=== PATIENT | female | born 1960 | race Caucasian/White ===

== ENCOUNTER → 2018-02-01 | Outpatient (CLI) | payer OTHER ==
[2018-02-01 10:52] VITALS: BMI 22.4
--- NOTE | 2018-02-01 11:47 | P.GSHP ---
History of Present Illness H&P Date: 02/01/18 The patient is a 57-year-old white female who presents for breast examination. Her last bilateral mammogram was performed [id number] which revealed chronic nodularity 4:00 in the right breast at middle depth. And a focal asymmetry 6: 00 in the left breast posteriorly appeared more defined from prior exams. Recommendations was for additional views of the left breast which were performed on 351. This revealed the breast to be heterogeneously dense with some persistence of density however it was felt to be probably benign and six- month follow-up was recommended. At this time the patient states she has some persistent tenderness in the lateral aspect of the left breast. No discrete nodularity is identified. She does not complain of any masses or lumps in her breasts. She does not complain of any nipple discharge or skin changes. She has no history of trauma or infection in the breast. The patient drinks one to 2 cups of coffee per day, she drinks occasional pop. She does not smoke and does not live with a smoker. She does not have large quantities of chocolate intake. Family history: 1. Mother: Rectal cancer Hormonal History: menarche: 14 : 3, 3 children, breast fed: no, first at 19 menopause: 47 BCP: none hormones: none Past surgical history: 1. Cyst right neck 2. Bilateral breast biopsies all benign 3. Tubal ligation 4. bladder surgery Past medical history: 1. none 2. occasional migraine Social history: Smoking: Negative Alcohol: On weekendswine Drugs: Negative - Constitutional Constitutional: Reports sweats - EENT Eyes: denies blurred vision, denies pain Ears: left: decreased hearing, deny: tinnitus Ears, nose, mouth and throat: Reports headache, Denies sore throat - Breasts Breasts: bilateral: as per HPI - Cardiovascular Comment: palpitations Cardiovascular: Denies chest pain, Denies shortness of breath - Respiratory Respiratory: Denies cough, Denies 7 - Gastrointestinal Gastrointestinal: Denies abdominal pain, Denies diarrhea, Denies nausea, Denies vomiting - Genitourinary (Female) Genitourinary: Denies dysuria, Denies hematuria - Menstruation Menstruation: Reports postmenopausal - Musculoskeletal Comment: arthritis - Integumentary Integumentary: Denies pruritus, Denies rash - Neurological Neurological: Denies numbness, Denies weakness - Psychiatric Psychiatric: Denies anxiety, Denies depression - Endocrine Endocrine: Denies fatigue, Denies weight change - Hematologic/Lymphatic Comment: none - Allergic/Immunologic Allergic/Immunologic: Reports seasonal allergies Past Medical History Past Medical History: Mitral Valve Prolapse (MVP) Additional Past Medical History / Comment(s): CONSTIPATION- FAMILY HX COLON CA History of Any Multi-Drug Resistant Organisms: None Reported Past Surgical History: Bladder Surgery, Breast Surgery, Tubal Ligation Additional Past Surgical History / Comment(s): BREAST BX X 3, VAGINAL SLING, EXC.CYST-NECK, COLONOSCOPY Past Anesthesia/Blood Transfusion Reactions: No Reported Reaction Smoking Status: Never smoker Past Alcohol Use History: Occasional Past Drug Use History: None Reported - Past Family History Mother Family Medical History: Cancer Additional Family Medical History / Comment(s): COLON CA Medications and Allergies Home Medications Medication Instructions Recorded Confirmed Type Rizatriptan Benzoate [Maxalt] 10 mg PO BID PRN 09/21/14 02/01/18 History Allergies Allergy/AdvReac Type Severity Reaction Status Date / Time amoxicillin Allergy Rash/Hives Verified 09/21/14 10:49 cephalexin monohydrate Allergy Nausea & Verified 09/21/14 10:49 [From Keflex] Vomiting Surgical - Exam - General well developed, well nourished, no distress - Eyes normal ocular movement - ENT no hearing loss, no congestion - Neck no masses, trachea midline - Respiratory normal respiratory effort, clear to auscultation - Cardiovascular Rhythm: regular Heart Sounds: normal: S1, S2 - Abdomen Abdomen: soft, non tender, no guarding, no rigid, no rebound - Neurologic no disoriented, no combative - Musculoskeletal normal gait, normal posture - Psychiatric oriented to time, oriented to person, oriented to place, speech is normal, memory intact breast exam; Right breast: Multi-positional exam fibrocystic changes, prior biopsies performed with some scar tissue, no dominant masses or nodules of concern, Right axilla: No adenopathy of concern Left breast: Multi-positional exam fibrocystic changes, set our tissue from prior biopsies, some slight increased fullness of the breast in the upper outer quadrant area which appears to be fibrocystic No dominant masses or nodules of concern Left axilla: No adenopathy of concern Results mammogram reviewed Assessment and Plan Plan: impression: 1.fibrocystic breast 2. abnormal mammogram 3. history of migraines 4. Discomfort left lateral breast most likely fibrocystic in nature plan: 1. left breast mammogram now is no lesions of concern noted on mammogram patient will have repeat bilateral mammogram in 6 months 2. Follow-up examination in 6 months Cc: Dr. Suleiman Avelar We have discussed that caffeine intake may cause the discomfort in her left breast however the patient is going to consider whether she would like to stop her coffee or not.
== END | disposition home or self-care (01) ==
LOC: WWCWWP 10:25
PROVIDERS: ATTEND Surgery
DX: Z53.9 Procedure and treatment not carried out, unspecified reason (principal)

== ENCOUNTER → 2018-02-11 | Outpatient (CLI) | payer BC ==
--- NOTE | 2018-02-11 08:39 | MM ---
Reason for exam: follow-up at short interval from prior study. Last mammogram was performed 8 years and 8 months ago. History: Excisional biopsy of both breasts, August 2008. 2 benign cyst aspirations of the right breast. Physical Findings: Nurse did not find any significant physical abnormalities on exam. MG 3D Diag Mammo W/Cad LT CC and MLO view(s) were taken of the left breast. Prior study comparison: July 30, 2017, mammogram. July 26, 2017, mammogram. March 30, 2016, mammogram. The breast tissue is heterogeneously dense. This may lower the sensitivity of mammography. Architectural distortion posterior superior left breast centrally on the CC view appears to have been present in 2016, likely excisional scar. Asymmetric densities posteriorly and centrally on the MLO view are more defined from07/26/17 but appear similar to 2016. Additional short interval follow up recommended. These results were verbally communicated with the patient and result sheet given to the patient on 02/11/18. ASSESSMENT: Probably benign, BI-RAD 3 RECOMMENDATION: Follow-up diagnostic mammogram of both breasts in 6 months. (total 1 year follow up)
== END | disposition home or self-care (01) ==
LOC: RADMAMWWP 07:03
PROVIDERS: ATTEND Surgery
DX: N63.20 Unspecified lump in the left breast, unspecified quadrant (principal)
CPT/HCPCS: 77061; 77065

== ENCOUNTER → 2018-08-13 | Outpatient (CLI) | payer BC, OTHER ==
--- NOTE | 2018-08-13 07:53 | MM ---
Reason for exam: follow-up at short interval from prior study. Last mammogram was performed 6 months ago. History: Patient is postmenopausal. Excisional biopsy of both breasts, August 2008. 2 benign cyst aspirations of the right breast. Physical Findings: Nurse did not find any significant physical abnormalities on exam. MG 3D Diag Mammo W/Cad SHANNA Bilateral CC and MLO view(s) were taken. Prior study comparison: February 11, 2018, left breast MG 3d diag mammo w/cad LT. July 30, 2017, mammogram. The breast tissue is heterogeneously dense. This may lower the sensitivity of mammography. No suspicious abnormality. Two areas of left distortion are seen on the left at 12 o'clock and upper outer quadrant correspond to the sites of prior excision. These results were verbally communicated with the patient and result sheet given to the patient on 08/13/18. ASSESSMENT: Benign, BI-RAD 2 RECOMMENDATION: Routine screening mammogram of both breasts in 1 year.
== END | disposition home or self-care (01) ==
LOC: RADMAMWWP 06:59
PROVIDERS: ATTEND Surgery
DX: R92.8 Other abnormal and inconclusive findings on diagnostic imaging of breast (principal)
CPT/HCPCS: 77062; 77066

== ENCOUNTER → 2020-07-06 | Outpatient (CLI) | payer BC ==
[2020-07-06 08:47] VITALS: BP 120/80; PULSE 77; RESP 18; TEMP 97.8
--- NOTE | 2020-07-06 09:32 | P.HPOB ---
History of Present Illness H&P Date: 07/06/20 Chief Complaint: The patient is here for her routine gynecologic exam and ma mmogram. This is a 60-year-old with an LMP of 2008. The patient is here to establish with this office. It is been about 3 years since her last pelvic exam. The patient is without gynecologic complaints and denies any postmenopausal bleeding. She was previously seen by Dr. Peters for regular Pap smears. Review of Systems She believes she has gained about 5 pounds over the past year. She denies respiratory or GI problems. Cardiac: Occasional palpitation and this is previously been worked up and felt to be not a problem. Past Medical History Past Medical History: Asthma, Mitral Valve Prolapse (MVP) Additional Past Medical History / Comment(s): History of migraine. 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 History of Any Multi-Drug Resistant Organisms: None Reported Past Surgical History: Bladder Surgery, Breast Surgery, Tubal Ligation Additional Past Surgical History / Comment(s): BREAST BX X 3, VAGINAL URETHRAL SLING, EXC.CYST-NECK, COLONOSCOPY 2014(next after 5yr). Varicose vein surgery on the legs. Past Anesthesia/Blood Transfusion Reactions: No Reported Reaction Past Psychological History: No Psychological Hx Reported Smoking Status: Never smoker Past Alcohol Use History: Daily (1 or 2 per day) Past Drug Use History: None Reported Additional History: She has been since 1999. She does not work outside of the home. - Past Family History Mother Family Medical History: Cancer, Hypertension Additional Family Medical History / Comment(s): COLON CA. Osteoporosis. Father Family Medical History: Hypertension Medications and Allergies Home Medications Medication Instructions Recorded Confirmed Type Rizatriptan Benzoate [Maxalt] 10 mg PO BID PRN 09/21/14 07/06/20 History Albuterol Sulfate [Ventolin HFA] 1 - 2 puff INHALATION Q6H PRN 07/06/20 07/06/20 History Allergies Allergy/AdvReac Type Severity Reaction Status Date / Time amoxicillin Allergy Rash/Hives Verified 07/06/20 08:42 cephalexin monohydrate Allergy Nausea & Verified 07/06/20 08:42 [From Keflex] Vomiting Exam Vital Signs Temp Pulse Resp BP Pulse Ox 07/06/20 08:44 97.8 F 77 18 120/80 99 Intake and Output 07/05/20 07/06/20 07/06/20 22:59 06:59 14:59 Other: Weight 67.132 kg Height 5 feet 7 inches, weight 148 pounds, BMI 23.2. This is a well-developed well-nourished white female who is alert and oriented times 3 in no acute distress. HEENT: Within normal limits. NECK: Supple without mass or thyromegaly. CHEST AND LUNGS: Clear to auscultation. HEART: Regular rate and rhythm. BREASTS: Are without mass or discharge. AXILLARY EXAM: Negative for adenopathy. BACK: Negative for CVA tenderness. ABDOMEN: Soft, nontender, without palpable masses. PELVIC EXAM: Normal external genitalia with mild atrophy. Cervix and vagina appear normal mild atrophy. There is no unusual discharge. There is no evidence of prolapse. The uterus is retroverted, nongravid size and nontender. There are no palpable adnexal masses or tenderness. RECTAL EXAM: Rectovaginal exam is negative for mass or tenderness and is negative for occult blood. EXTREMITIES: Nontender. IMPRESSION: 1. 60-year-old menopausal female with normal gynecologic exam. 2. Family history of colon cancer and osteoporosis. PLAN: 1. Pap smear cotest was performed. We will try to obtain records from Dr. Peters regarding her Pap smears over the past 10 years. 2. Self breast awareness was discussed with the patient. 3. Screening mammogram was done today. 4. Osteoporosis prevention was discussed. I have stressed the importance of adequate calcium, vitamin D and regular exercise. Recommended amounts of calcium and vitamin D were also discussed. Bone density testing will be done today. 5. She states she is due for a colonoscopy and states she may wait until the Covid pandemic has improved. Because she is considered above-average risk because of her mother's history of colon cancer, I have recommended that she continue to have colonoscopies instead of Cologuard testing. 6. She was advised to return in one year for her annual well woman exam.
--- NOTE | 2020-07-06 11:58 | BD ---
EXAMINATION TYPE: Axial Bone Density DATE OF EXAM: 07/06/2020 COMPARISON: NONE CLINICAL HISTORY: Height: 5 FT 6IN Weight: 145 FRAX RISK QUESTIONS: Alcohol (3 or more units per day): NO Family History (Parent hip fracture): NO Glucocorticoids (More than 3mos): NO (Ex: prednisone, prednisolone, methylprednisolone, dexamethasone, and hydrocortisone). History of Fracture in Adulthood: NO Secondary Osteoporosis: 1. Type 1 Diabetes: NO 2. Hyperthyroidism: NO 3. Menopause before 45: NO 4. Malnutrition: NO 5. Chronic liver disease: NO Rheumatoid Arthritis: NO Current Tobacco Use: NO RISK FACTORS HISTORY OF: Family History of Osteoporosis: YES Active: SOMEWHAT Diet low in dairy products/other sources of calcium: NO Postmenopausal woman: AGE 40-50 Take estrogen and/or progesterone medications: NONE Lost more than 2 inches in height since high school: NO MEDICATIONS: Additional Medications: MAXALT NEEDED, INHALER NEEDED, VITAMINS Additional History: EXAM MEASUREMENTS: Bone mineral densitometry was performed using the [employer] System. Bone mineral density as measured about the Lumbar spine is: ----- L1-L4(G/cm2): 0.985 T Score Values are as follows: ----- L2: -1.9 ----- L3: -1.6 ----- L4: -1.0 ----- L1-L4: -1.6 BASELINE Bone mineral density about the R hip (g/cm2): 0.933 Bone mineral density about the L hip (g/cm2): 0.971 T Score values are as follows: -----R Neck: -0.8 -----L Neck: -0.5 -----R Total: 0.2 -----L Total: -0.3 BASELINE IMPRESSION: Osteopenia (T Score between -2.5 and -1). There is slightly increased risk of fracture and the patient may be considered for treatment. Re-Screen 2-5 years. NOTE: T-SCORE=SD OF THE YOUNG ADULT MEAN.
== END | disposition home or self-care (01) ==
LOC: WWCWWP 07:45
PROVIDERS: ATTEND Obstetrics & Gynecology
DX: M85.80 Other specified disorders of bone density and structure, unspecified site (principal); Z78.0 Asymptomatic menopausal state
CPT/HCPCS: 77080

== ENCOUNTER → 2020-07-06 | Outpatient (CLI) | payer BC ==
--- NOTE | 2020-07-07 11:14 | MM ---
Reason for exam: screening (asymptomatic). Last mammogram was performed 1 year and 11 months ago. History: Patient is postmenopausal. Excisional biopsy of both breasts, August 2008. 2 benign cyst aspirations of the right breast. Took hormonal contraceptives for 2 years. Physical Findings: A clinical breast exam by your physician is recommended on an annual basis and results should be correlated with mammographic findings. MG 3D Screening Mammo W/Cad Bilateral CC and MLO view(s) were taken. Prior study comparison: August 13, 2018, bilateral MG 3d diag mammo w/cad [facility]. July 26, 2017, mammogram. The breast tissue is heterogeneously dense. This may lower the sensitivity of mammography. No significant changes when compared with prior studies. ASSESSMENT: Benign, BI-RAD 2 RECOMMENDATION: Routine screening mammogram of both breasts in 1 year.
== END | disposition home or self-care (01) ==
LOC: RADMAMWWP 07:44
PROVIDERS: ATTEND Obstetrics & Gynecology
DX: Z12.31 Encounter for screening mammogram for malignant neoplasm of breast (principal)
CPT/HCPCS: 77063; 77067

== ENCOUNTER 2020-11-24 08:48 | Day surgery (SDC) | payer BC ==
[2020-11-19 14:17] VITALS: BMI 21.9
[~2020-11-24 08:48] MED LIST: LACTATED RINGERS 1,000 ML IV SCH; LIDOCAINE 1% (10MG/ML) FOR IV START INTRADERMA PRN
[2020-11-24 09:25] VITALS: RESP 16; TEMP 99
[2020-11-24] MEDS ORDERED: ALBUTEROL INHALER 60 PUFF/8 GM INHALER (MHU) INHALATION ONE (09:33)
[2020-11-24] MEDS ORDERED: PROPOFOL 10 MG/ML 20 ML VIAL IV ONE (10:03)
--- NOTE | 2020-11-24 10:21 | P.PCN ---
Date of Procedure: 11/24/20 Procedure(s) Performed: BRIEF HISTORY: Patient is a 60-year-old pleasant white female scheduled for an elective colonoscopy as a part of screening for colorectal neoplasia. She does have family history of colon cancer diagnosed in her mouth at age 70. PROCEDURE PERFORMED: Colonoscopy. PREOPERATIVE DIAGNOSIS: Screening for colon cancer and family history of colon cancer. IV sedation per Anesthesia. PROCEDURE: After informed consent was obtained, the patient, was brought into the endoscopy unit. IV sedation was administered by Anesthesia under continuous monitoring. Digital rectal examination was normal. Initially the Olympus CF-160 flexible video colonoscope was then inserted in the rectum, gradually advanced into the cecum without any difficulty. Careful examination was performed as the scope was gradually being withdrawn. Ileocecal valve and the appendiceal orifice were visualized and appeared normal. Prep was excellent. Mucosa of the cecum, ascending colon, transverse colon, descending colon, sigmoid colon, and rectum appeared normal. Retroflexion was performed in the rectum and no lesions were seen. Scattered sigmoid diverticulosis seen. The patient tolerated the procedure well. IMPRESSION: Normal-appearing colon from rectum to cecum with no evidence of colorectal neopl maria guadalupe Scattered sigmoid diverticulosis. . RECOMMENDATIONS: Findings of this examination were discussed with the patient as well as family. She was advised to have a repeat screening colonoscopy neftaly ry 5 years because of strong family history of colon cancer.
[2020-11-24 10:43] VITALS: BP 107/69; PULSE 74
== END 2020-11-24 11:10 | disposition home or self-care (01) ==
LOC: ORWHC2ENDO 08:48
PROVIDERS: ATTEND Internal Medicine Gastroenterology
DX: Z12.11 Encounter for screening for malignant neoplasm of colon (principal); K57.30 Diverticulosis of large intestine without perforation or abscess without bleeding; Z80.0 Family history of malignant neoplasm of digestive organs; Z79.899 Other long term (current) drug therapy; I34.1 Nonrheumatic mitral (valve) prolapse; J45.909 Unspecified asthma, uncomplicated; G43.909 Migraine, unspecified, not intractable, without status migrainosus; Z88.1 Allergy status to other antibiotic agents; Z88.0 Allergy status to penicillin; K21.9 Gastro-esophageal reflux disease without esophagitis
CPT/HCPCS: J2704; G0105

== ENCOUNTER → 2022-10-24 | Outpatient (CLI) | payer BC ==
[2022-10-24 08:36] VITALS: BP 138/91; PULSE 67; RESP 16; TEMP 98.2
--- NOTE | 2022-10-24 09:27 | P.HPOB ---
History of Present Illness H&P Date: 10/24/22 Chief Complaint: The patient is here for her routine gynecologic exam and ma mmogram. This is a 62-year-old with an LMP of 2008. The patient states she has been having low abdominal and pelvic pressure which has been intermittent. She rates it at a 2 out of 10. It has not been a very big problem, but is noticeable. She is otherwise without complaints. Review of Systems She is gained about 12 pounds over the past year. She denies respiratory or GI problems. Cardiac: Occasional palpitations. This was worked up and was felt to be intermittent PVCs. : She states she is voiding well and does not have any issues with retention. Past Medical History Past Medical History: Asthma, GERD/Reflux, Mitral Valve Prolapse (MVP), Osteoarthritis (OA), Pneumonia Additional Past Medical History / Comment(s): hx migraine. palpitations, renal insufficiency. Osteopenia. 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 History of Any Multi-Drug Resistant Organisms: None Reported Past Surgical History: Bladder Surgery, Breast Surgery, Tubal Ligation Additional Past Surgical History / Comment(s): BREAST BX X 3, URETHRAL SLING, EXC.CYST-NECK, varicose vein surgery left leg. Colonoscopy 2020(next after 5yr). Past Anesthesia/Blood Transfusion Reactions: No Reported Reaction Past Psychological History: No Psychological Hx Reported Smoking Status: Never smoker Past Alcohol Use History: Occasional (4-5 per week) Past Drug Use History: Marijuana (She does use marijuana and this helps her to sleep.) Additional History: She has been since 1999. She is sexually active. She does not work outside of the home. - Past Family History Father Family Medical History: Hypertension Mother Family Medical History: Cancer, Deep Vein Thrombosis (DVT) Additional Family Medical History / Comment(s): COLON CA. Medications and Allergies Home Medications Medication Instructions Recorded Confirmed Type Rizatriptan Benzoate [Maxalt] 10 mg PO BID PRN 09/21/14 10/24/22 History Albuterol Sulfate [Ventolin HFA] 1 - 2 puff INHALATION Q6H PRN 07/06/20 10/24/22 History Multivitamins, Thera [Multivitamin 1 tab PO DAILY 11/19/20 10/24/22 History (formulary)] Allergies Allergy/AdvReac Type Severity Reaction Status Date / Time amoxicillin Allergy Rash/Hives Verified 10/24/22 08:32 cephalexin monohydrate Allergy Nausea & Verified 10/24/22 08:32 [From Keflex] Vomiting Exam Vital Signs Temp Pulse Resp BP Pulse Ox 10/24/22 08:33 98.2 F 67 16 138/91 99 Intake and Output 10/23/22 10/24/22 10/24/22 22:59 06:59 14:59 Other: Weight 72.575 kg Height 5 feet 6 inches, weight 160 pounds, BMI 25.8. This is a well-developed well-nourished white female who is alert and oriented times 3 in no acute distress. HEENT: Within normal limits. NECK: Supple without mass or thyromegaly. CHEST AND LUNGS: Clear to auscultation. HEART: Regular rate and rhythm. BREASTS: Are without mass or discharge. AXILLARY EXAM: Negative for adenopathy. BACK: Negative for CVA tenderness. ABDOMEN: Soft, nontender, without palpable masses. PELVIC EXAM: Normal external genitalia with mild atrophy. Cervix and vagina appear normal with mild atrophy . There is no cervical motion tenderness. There is no unusual discharge. There is no evidence of prolapse. The uterus is midposition, nongravid size and nontender. There are no palpable adnexal masses or tenderness. RECTAL EXAM: Rectovaginal exam is negative for mass or tenderness and is negative for occult blood. EXTREMITIES: Nontender. IMPRESSION: 1. 62-year-old menopausal female with normal gynecologic exam. 2. Recent low abdominal and pelvic pressure with no significant physical findings on exam today. 3. History of osteopenia. 4. Mildly elevated blood pressure. PLAN: 1. Pap smear was deferred since she had a negative Pap smear cotest in 2020. 2. Self breast awareness was discussed with the patient. We have also discussed symptoms associated with inflammatory breast cancer. 3. Screening mammogram was done today. 4. Pelvic ultrasound was recommended because of the low abdominal and pelvic pressure and this will be used to check for ovarian problems. The order slip was given to the patient for this. 5. Osteoporosis prevention was discussed. I have stressed the importance of adequate calcium, vitamin D and regular exercise. Recommended amounts of calcium and vitamin D were also discussed. Bone density testing was recommended and the order slip was given to the patient for this. 6. We've discussed her elevated blood pressure. I recommended that she check her own blood pressure at home on a regular basis since she does have a blood pressure cuff. She will follow-up with her PCP for blood pressure elevations. 7. Weight control was a concern of the patient since she did gained 12 pounds since last year. We have discussed the importance of good nutrition, regular meals, adequate fiber and regular activity. 8. She was advised to return in one year for her annual well woman exam.
--- NOTE | 2022-10-25 11:37 | MM ---
Reason for Exam: Screening (asymptomatic). Last screening mammogram was performed 12 month(s) ago. Patient History: Menarche at age 13. First Full-Term at age 19. Postmenopausal. Patient used Hormonal Contraceptives for 2 years. 10/09/2005, Benign Excisional Biopsy on the left side. Benign Cyst Aspiration on the right side. 08/2008, Bilateral Benign Excisional Biopsy. Benign Cyst Aspiration on the right side. Risk Values: Sienna 5 year model risk: 1.9%. NCI Lifetime model risk: 8.1%. Prior Study Comparison: 08/13/2018 Bilateral Diagnostic Mammogram, [facility]. 07/06/2020 Bilateral Screening Mammogram, [facility]. 10/18/2021 Bilateral MG 3D screening mammo w/cad, [facility]. Tissue Density: The breast tissue is heterogeneously dense. This may lower the sensitivity of mammography. Findings: Analyzed By CAD. Stable distortion in the upper aspect of the left breast. There is no suspicious new group of microcalcifications or new suspicious mass in either breast. Overall Assessment: Benign, BI-RAD 2 Management: Screening Mammogram of both breasts in 1 year. . Patient should continue monthly self-breast exams. A clinical breast exam by your physician is recommended on an annual basis. This exam should not preclude additional follow-up of suspicious palpable abnormalities. Note on Sienna scores and lifetime risk: 1. A Sienna score greater than 3% is considered moderate risk. If this is the case, consider specialist referral to assess eligibility for a risk reducing agent. 2. If overall lifetime risk for the development of breast cancer is 20% or higher, the patient may qualify for future screening with alternating mammogram and breast MRI. Electronically signed and approved by: Benji Perez M.D.
== END | disposition home or self-care (01) ==
LOC: RADMAMWWP 08:01
PROVIDERS: ATTEND Obstetrics & Gynecology
DX: Z12.31 Encounter for screening mammogram for malignant neoplasm of breast (principal); Z78.0 Asymptomatic menopausal state
CPT/HCPCS: 77063; 77067

== ENCOUNTER → 2022-11-15 | Outpatient (CLI) | payer BC ==
--- NOTE | 2022-11-15 14:51 | US ---
EXAMINATION TYPE: US pelvic complete DATE OF EXAM: 11/15/2022 COMPARISON: NONE CLINICAL INDICATION: Female, 62 years old with history of R10.2; gen pelvic pressure TECHNIQUE: Transabdominal (TA). Transabdominal sonographic images of the pelvis were acquired. EXAM MEASUREMENTS: Uterus: 6.5 x 2.5 x 3.4 cm Endometrial Stripe: 0.5 cm Right Ovary: 2.6 x 3.3 x 2.1 cm Left Ovary: 2.6 x 1.6 x 1.6 cm 1. Uterus: Retroverted wnl 2. Endometrium: wnl 3. Right Ovary: seen with a 2.1cm cyst 4. Left Ovary: wnl 5. Bilateral Adnexa: wnl 6. Posterior cul-de-sac: no free fluid seen Urinary bladder is sonolucent. Posterior wall is normal. IMPRESSION: 1. Right ovarian cyst. Follow-up in 6 weeks is recommended.
--- NOTE | 2022-11-15 15:25 | BD ---
EXAMINATION TYPE: Axial Bone Density DATE OF EXAM: 11/15/2022 CLINICAL HISTORY: 62 years old Female. ICD-10 CODE: Z78.0 Height: 65 Weight: 156 FRAX RISK QUESTIONS: Family History (Parent hip fracture): yes , mother History of Fracture in Adulthood: no Secondary Osteoporosis: no RISK FACTORS HISTORY OF: Family History of Osteoporosis: yes, mother and grandma maternal Active: yes Diet low in dairy products/other sources of calcium: no Postmenopausal woman: yes Lost more than 2 inches in height since high school: no Frequent falls: no Poor Health: no MEDICATIONS: Additional Medications: yes migraine meds as needed EXAM MEASUREMENTS: Bone mineral densitometry was performed using the [employer] System. Bone mineral density as measured about the Lumbar spine is: ----- L1-L4(G/cm2): 1.019 T Score Values are as follows: ----- L1: -2.0 ----- L2: -1.8 ----- L3: -0.7 ----- L4: -1.1 ----- L1-L4: -1.3 Z Score Values are as follows: ----- L1: -0.7 ----- L2: -0.5 ----- L3: 0.6 ----- L4: 0.2 ----- L1-L4: -0.1 Bone mineral density has: Increased 3.5% since study of: 07/06/2020 Bone mineral density about the R hip (g/cm2): 1.045 Bone mineral density about the L hip (g/cm2): 0.989 T Score values are as follows: -----R Neck: -1.2 -----L Neck: -1.2 -----R Total: 0.3 -----L Total: -0.1 Z Score values are as follows: -----R Neck: 0.1 -----L Neck: 0.1 -----R Total: 1.3 -----L Total: 0.8 Bone mineral density has: Increased 1.6% since study of: 07/06/2020 FRAX%s: The graph provided illustrates a 16.0% chance for a major osteoporotic fx and a 0.7% chance f or the hips probability for fx in 10 years time. IMPRESSION: Osteopenia (T Score between -2.5 and -1). There is slightly increased risk of fracture and the patient may be considered for treatment. Re-Screen 2-5 years. NOTE: T-SCORE=SD OF THE YOUNG ADULT MEAN.
== END | disposition home or self-care (01) ==
LOC: RADUSWWP 13:58
PROVIDERS: ATTEND Obstetrics & Gynecology
DX: M85.89 Other specified disorders of bone density and structure, multiple sites (principal); R10.2 Pelvic and perineal pain; Z78.0 Asymptomatic menopausal state
CPT/HCPCS: 76856; 77080

== ENCOUNTER → 2023-12-04 | Outpatient (CLI) | payer BC ==
[2023-12-04 14:34] VITALS: BP 123/83; PULSE 101; RESP 16; TEMP 98.3
--- NOTE | 2023-12-04 15:09 | P.HPOB ---
History of Present Illness H&P Date: 12/04/23 Chief Complaint: The patient is here for her routine gynecologic exam and ma mmogram. This is a 63-year-old G3, P3 with an LMP of 2008. The patient was found to have a simple right ovarian cyst measuring 2.1 cm on 11/15/2022. The plan was to repeat it after 6 months. The patient states she forgot to have this done. She states she does have occasional abdominal bloating but this is intermittent and not persistent. She denies any pelvic pain or pelvic pressure. She is without gynecologic complaints. Review of Systems The patient has lost 8 pounds over the last year. She denies respiratory or G.I. problems. Cardiac: Occasional palpitations. She has had a workup for this which apparently showed intermittent PVCs. Past Medical History Past Medical History: Asthma, Cancer, GERD/Reflux, Mitral Valve Prolapse (MVP), Osteoarthritis (OA), Pneumonia Additional Past Medical History / Comment(s): Right leg skin cancer. Hx migraine. palpitations, renal insufficiency. Osteopenia. PAST CABINET ABRASIVE SANDBLASTER HISTORY: She has no history of STDs. History of Any Multi-Drug Resistant Organisms: None Reported Past Surgical History: Bladder Surgery, Breast Surgery, Tubal Ligation Additional Past Surgical History / Comment(s): BREAST BX X 3, URETHRAL SLING, EXC.CYST-NECK, varicose vein surgery left leg. Colonoscopy 2020(next after 5yr). Past Anesthesia/Blood Transfusion Reactions: No Reported Reaction Past Psychological History: No Psychological Hx Reported Smoking Status: Never smoker Past Alcohol Use History: Occasional Past Drug Use History: Marijuana (Infrequently smokes marijuana.) Additional Drug Use History / Comment(s): THC Gummies. - Past Family History Father Family Medical History: Congestive Heart Failure (CHF), Hypertension Additional Family Medical History / Comment(s): Cardiac arrhythmia Mother Family Medical History: Cancer, Deep Vein Thrombosis (DVT) Additional Family Medical History / Comment(s): COLON CA. Medications and Allergies Home Medications Medication Instructions Recorded Confirmed Type Rizatriptan Benzoate [Maxalt] 10 mg PO BID PRN 09/21/14 12/04/23 History Albuterol Sulfate [Ventolin HFA] 1 - 2 puff INHALATION Q6H PRN 07/06/20 12/04/23 History Multivitamins, Thera [Multivitamin 1 tab PO DAILY 11/19/20 12/04/23 History (formulary)] Allergies Allergy/AdvReac Type Severity Reaction Status Date / Time amoxicillin Allergy Rash/Hives Verified 12/04/23 14:27 cephalexin monohydrate Allergy Nausea & Verified 12/04/23 14:27 [From Keflex] Vomiting Exam Vital Signs Temp Pulse Resp BP Pulse Ox 12/04/23 14:28 98.3 F 101 H 16 123/83 98 Intake and Output 12/04/23 12/04/23 12/04/23 06:59 14:59 22:59 Other: Weight 68.946 kg Height 5 feet 7 inches, weight 152 pounds, BMI 23.8. This is a well-developed well-nourished [] female who is alert and oriented times 3 in no acute distress. HEENT: Within normal limits. NECK: Supple without mass or thyromegaly. CHEST AND LUNGS: Clear to auscultation. HEART: Regular rate. Infrequent premature beats. BREASTS: Are without mass or discharge. AXILLARY EXAM: Negative for adenopathy. BACK: Negative for CVA tenderness. ABDOMEN: Soft, nontender, without palpable masses. PELVIC EXAM: Normal external genitalia with mild atrophy. Cervix and vagina appear normal with mild atrophy. There is no unusual discharge. There is no evidence of prolapse. The uterus is retroverted, nongravid size and nontender. There are no palpable adnexal masses or tenderness. RECTAL EXAM: Rectovaginal exam is negative for mass or tenderness and is negative for occult blood. EXTREMITIES: Nontender. IMPRESSION: 1. 63-year-old menopausal female with normal gynecologic exam. 2. History of a 2.1 cm simple right ovarian cyst by ultrasound on 11/15/2022. 3. History of osteopenia. PLAN: 1. Pap smear was deferred since she had a negative Pap smear cotest on 07/06/2020. Will plan on repeating this next year. If this is negative, we will discontinue Pap smears. 2. Self breast awareness was discussed with the patient. We have also discussed symptoms associated with inflammatory breast cancer. 3. Screening mammogram will be done today. 4. Osteoporosis prevention was discussed. I have stressed the importance of adequate calcium, vitamin D and regular exercise. Recommended amounts of calcium and vitamin D were also discussed. We will plan on repeating bone density test in approximately 1 to 2 years. 5. Pelvic ultrasound is recommended to follow-up on the postmenopausal right ovarian cyst noted by ultrasound on 11/15/2022. The order slip was given to the patient for this. 6. She was advised to return in one year for her annual well woman exam.
== END ==
LOC: WWCWWP 14:01
PROVIDERS: ATTEND Obstetrics & Gynecology
DX: Z12.31 Encounter for screening mammogram for malignant neoplasm of breast (principal); M85.80 Other specified disorders of bone density and structure, unspecified site; N83.201 Unspecified ovarian cyst, right side; R14.0 Abdominal distension (gaseous); Z78.0 Asymptomatic menopausal state; Z88.0 Allergy status to penicillin; Z88.1 Allergy status to other antibiotic agents
CPT/HCPCS: 77063; 77067

== ENCOUNTER → 2024-02-07 | Outpatient (CLI) | payer BC ==
--- NOTE | 2024-02-07 12:20 | US ---
EXAMINATION TYPE: US pelvis complete transvag DATE OF EXAM: 02/07/2024 COMPARISON: 11/15/22 CLINICAL INDICATION: Female, 63 years old with history of N83.00 FOLLICULAR CYST OF OVARY, UNSPECIFIE D SIDE; hx of ovarian cyst on lt side. . Hx of tubal ligation years ago. TECHNIQUE: Transvaginal (TV) and Transabdominal (TA) . Date of LMP: years ago EXAM MEASUREMENTS: Uterus: 7.8 x 4.9 x 3.5 cm Endometrial Stripe: 0.36 cm Right Ovary: 3.8 x 3.1 x 2.7 cm Left Ovary: 2.0 x 1.5 x 1.0 cm 1. Uterus: Anteverted wnl 2. Endometrium: fluid seen inside, echogenic area seen measuring 0.8cm 3. Right Ovary: cystic area seen measuring 3.2 x 2.7 x 2.4cm. On a couple images there appears to be some wall thickening or septation. 4. Left Ovary: wnl 5. Bilateral Adnexa: wnl 6. Posterior cul-de-sac: wnl IMPRESSION: 1. There is a 3.2 cm right ovarian cyst. This could represent a simple cyst, however, given the patie nt's demographic cystic neoplasms of the ovary need to be excluded. Cyst is larger compared to prior exam of 2022 where it measured 2.1 cm. Consider correlation with CA 125. 2. There is a 8 mm echogenic nodule within the endometrium with a small amount of surrounding fluid. Endometrial polyp or small mucosal lesion in the differential diagnosis.
--- NOTE | 2024-02-14 11:02 | P.PN ---
Progress Note - Text Progress Note Date: 02/14/24 OUTPATIENT FOLLOW-UP NOTE TEST(S)/RESULTS: Pelvic ultrasound done on 02/07/2024 showed a right ovarian cyst measuring 3.2 cm which could represent a simple cyst. This is slightly larger than her previous ultrasound done in 11/15/2022 when it measured 2.1 cm. There was a small amount of endometrial fluid and a 8 mm echogenic area with normal endometrial thickness. Possible endometrial polyp or small mucosal lesion. METHOD OF NOTIFICATION: The patient was notified by phone on 02/14/2024. PATIENT COMMENTS: She denies any postmenopausal bleeding or unusual pelvic pain or discomfort. DIAGNOSIS: Postmenopausal right ovarian cyst, probably benign, but slightly larger than her 11/15/2022 ultrasound. Endometrial fluid with normal endometrial thickness and 8 mm echogenic area, possible endometrial polyp or small mucosal lesion. DISCUSSION: I have recommended the patient have a CA125 blood test drawn. If this is normal and she is having no postmenopausal bleeding, we will plan on repeating the pelvic ultrasound in 6 months for reevaluation. She was instructed to call if she is having any vaginal bleeding or pelvic discomfort. PLAN: The order slip for a CA125 blood test will be mailed to the patient along with an order slip for a pelvic ultrasound to be done in 6 months.
== END | disposition home or self-care (01) ==
LOC: RADUSWWP 09:19
PROVIDERS: ATTEND Obstetrics & Gynecology
DX: N83.00 Follicular cyst of ovary, unspecified side
CPT/HCPCS: 76830; 76856

== ENCOUNTER → 2024-03-25 | Outpatient (CLI) | payer MEDICARE | END | disposition home or self-care (01) | LOC: LABWHC1 11:58 | PROVIDERS: ATTEND Obstetrics & Gynecology | DX: N83.00 Follicular cyst of ovary, unspecified side (principal) | CPT/HCPCS: 36415; 86304 ==

== ENCOUNTER → 2024-09-04 | Outpatient (CLI) | payer MEDICARE ==
--- NOTE | 2024-09-04 13:52 | US ---
EXAMINATION TYPE: US pelvis complete transvag DATE OF EXAM: 09/04/2024 COMPARISON: NONE CLINICAL INDICATION: Female, 64 years old with history of N83.00 FOLLICULAR CYST OF OVARY, UNSPECIFIE D SIDE; Hx of ovarian cyst. TECHNIQUE: Transvaginal (TV) and Transabdominal (TA) . Doppler imaging: Not performed. FINDINGS: EXAM MEASUREMENTS: Uterus: 6.3 x 3.3 x cm Endometrial Stripe: 0.25 cm Right Ovary: 2.9 x 3.0 x 3.4 cm 1. Uterus: Retroverted 2. Endometrium: Fluid visualized 3 mm and an echogenic area seen within measuring .7 x .5 cm. 3. Right Ovary: Cystic area seen 2.6 x 2.5 x 3.1 cm. Borders are not completely smooth and this cou ld be volume averaging. Small peripheral septations however should be considered. Correlate with the laboratory results. 4. Left Ovary: Obscured by overlying bowel gas 5. Bilateral Adnexa: wnl 6. Posterior cul-de-sac: wnl IMPRESSION: 1. Suspected polyp within the endometrial canal. Clinical correlation recommended. 2. O-rads 2, right ovarian cyst. Follow-up ultrasound in 12 months O-RADS 2021 [email or web address] [email or web address], , 09/04/2024 1:49 PM
== END | disposition home or self-care (01) ==
LOC: RADUSWWP 13:08
PROVIDERS: ATTEND Obstetrics & Gynecology
DX: N83.01 Follicular cyst of right ovary (principal)
CPT/HCPCS: 76830; 76856